=== PATIENT | male | born 1980 | race Caucasian/White ===

== ENCOUNTER 2021-11-09 09:30 | Inpatient (IN) ==
[2021-11-09 09:57] LABS: Hematocrit 36.9 % (37.5-50.1)
[2021-11-09] MEDS ORDERED: Iopamidol - 370 500 ML MLS IVP ONE (09:58)
[2021-11-09 09:59] LABS: Basophils # 0.1 K/mcL (0.0-0.2); Basophils % 0.5 %; Hemoglobin 12.1 g/dL (12.9-16.9); Immature Granulocytes % 0.8 % (0-4); Immature Platelets 12.8 % (1.1-6.1); Lymphocytes # 8.6 K/mcL (0.6-4.6); Lymphocytes % 63.9 %; Mean Corpuscular HGB Conc 32.8 g/dL (31.6-35.5); Mean Corpuscular Hemoglobin 25.2 pg (28.0-33.3); Mean Corpuscular Volume 76.9 fL (83.0-100.0); Mean Platelet Volume 10.9 fL (9.4-12.4); Monocytes # 1.6 K/mcL (0.0-1.3); Monocytes % 11.5 %; Platelet Count 129 K/mcL (140-400); Red Cell Distribution Width 17.3 % (11.5-14.5); Segmented Neutrophils % 23.3 %; White Blood Count 13.5 K/mcL (4.3-11.1)
[2021-11-09 10:02] LABS: Neutrophils # 3.2 K/mcL (1.6-8.9)
[2021-11-09 10:05] LABS: INR 1.1; Prothrombin Time 12.3 Seconds (9.4-12.1)
[2021-11-09] MEDS ORDERED: 0.9 % Sodium Chloride 1,000 ML IVC ONE ×2 (10:06→12:06)
[2021-11-09] MEDS ORDERED: Ondansetron 4 MG/2 ML VIAL IVP ONE (10:06)
[2021-11-09 10:07] LABS: Activated Partial Thrombo Time 39.8 Seconds (26.0-36.0)
[2021-11-09 10:37] LABS: Reactive Lymphocytes Present (Not Present)
[2021-11-09 10:38] LABS: Platelet Estimate Slight Decrease (Normal)
[2021-11-09 10:50] LABS: Alanine Aminotransferase 156 Units/L (7-52); Albumin 2.9 g/dL (3.5-5.7); Albumin/Globulin Ratio 0.7 (1.1-2.2); Alkaline Phosphatase 1056 Units/L (34-104); Aspartate Amino Transferase 268 Units/L (13-39); BUN/Creatinine Ratio 12 (6-26); Bilirubin,Total 7.8 mg/dL (0.3-1.0); Blood Urea Nitrogen 11 mg/dL (6-20); Calcium 8.2 mg/dL (8.6-10.3); Carbon Dioxide 28 mEq/L (23-29); Chloride 89 mEq/L (98-107); Globulin 3.9 g/dL (2.4-3.5); Glucose 145 mg/dL (70-105); Lipase 85 Units/L (11-82); Magnesium 2.1 mg/dL (1.6-2.6); Osmolality,Calculated 264 (280-300); Phosphorous 2.7 mg/dL (2.7-4.5); Sodium 126 mEq/L (136-145); Total Protein 6.8 g/dL (6.4-8.9); Troponin I 0.09 ng/mL (< 0.04)
[2021-11-09] MEDS ORDERED: Piperacillin/Tazobactam 3.375 GM in 0.9 % Sodium Chloride Mini Bag 100 ML IVPB ONE (12:06)
[2021-11-09 12:52] LABS: Bilirubin,Urine Moderate (Negative); Blood,Urine Negative (Negative); Clarity,Urine Clear (Clear); Color,Urine Dark-Yellow (Yellow); Glucose,Urine (UA) Normal (Normal); Ketones,Urine Negative (Negative); Leukocyte Esterase,Urine Negative (Negative); Nitrite,Urine Negative (Negative); Protein,Urine Trace mg/dL (Neg-Trace); Specific Gravity,Urine > 1.030 (1.010-1.025)
[2021-11-09 12:58] LABS: Bilirubin,Direct 4.8 mg/dL (0.0-0.2)
[2021-11-09] MEDS ORDERED: Naloxone 0.4 MG/ML INJ IVP PRN (14:25)
[2021-11-09 16:35] LABS: Troponin I 0.08 ng/mL (< 0.04)
[2021-11-09] MEDS ORDERED: Acetylcysteine IV 15,000 MG in D5% in Water 250 ML IVC ONE (16:58)
[2021-11-09 17:02] LABS: Hepatitis A Antibody IgM Nonreactive (Nonreactive)
[2021-11-09 17:04] LABS: Hepatitis B Core IgM Nonreactive (Nonreactive)
[2021-11-09 17:06] LABS: Hepatitis C Virus Antibody Nonreactive (Nonreactive)
[2021-11-09 17:28] LABS: Acetaminophen < 10 mcg/mL (10-20)
[2021-11-09] MEDS ORDERED: *HR* Dextrose 50 % in Water (Syg) 50 ML SYRINGE IVP PRN (17:53)
[2021-11-09] MEDS ORDERED: D5% in Water 1,000 ML IVC PRN (17:53)
[2021-11-09] MEDS ORDERED: Dextrose Gel 15 GM/37.5 ML TUBE PO PRN ×2 (17:53)
[2021-11-09 18:31] LABS: Hepatitis B Surface Antigen Reactive (Nonreactive)
[2021-11-09] MEDS ORDERED: Melatonin 3 MG TABLET PO PRN (20:30)
[2021-11-10 03:50] LABS: Immature Platelets 13.3 % (1.1-6.1); Nucleated Red Blood Cells 0.2 /100 WBC (0)
[2021-11-10 04:05] LABS: Alanine Aminotransferase 122 Units/L (7-52); Albumin 2.4 g/dL (3.5-5.7); Albumin/Globulin Ratio 0.7 (1.1-2.2); Alkaline Phosphatase 943 Units/L (34-104); Aspartate Amino Transferase 225 Units/L (13-39); BUN/Creatinine Ratio 11 (6-26); Bilirubin,Indirect 2.4 mg/dL (0.0-1.0); Bilirubin,Total 6.4 mg/dL (0.3-1.0); Blood Urea Nitrogen 9 mg/dL (6-20); Calcium 7.5 mg/dL (8.6-10.3); Carbon Dioxide 29 mEq/L (23-29); Chloride 92 mEq/L (98-107); Globulin 3.4 g/dL (2.4-3.5); Glucose 99 mg/dL (70-105); Osmolality,Calculated 265 (280-300); Potassium 3.3 mEq/L (3.5-5.1); Sodium 128 mEq/L (136-145); Total Protein 5.8 g/dL (6.4-8.9)
[2021-11-10 04:06] LABS: Chol/HDL Ratio 55.8 (0-4.9); Gamma Glutamyl Transpeptidase 1154 Units/L (7-64); Lactate Dehydrogenase 827 Units/L (140-271)
[2021-11-10 04:07] LABS: Phosphorous 2.4 mg/dL (2.7-4.5)
[2021-11-10 04:15] LABS: Basophils # 0.1 K/mcL (0.0-0.2); Basophils % 0.5 %; Hematocrit 29.7 % (37.5-50.1); Immature Granulocytes % 0.7 % (0-4); Lymphocytes # 8.9 K/mcL (0.6-4.6); Lymphocytes % 70.1 %; Mean Corpuscular HGB Conc 33.7 g/dL (31.6-35.5); Mean Corpuscular Hemoglobin 26.2 pg (28.0-33.3); Mean Platelet Volume 11.9 fL (9.4-12.4); Monocytes % 15.9 %; Neutrophils # 1.6 K/mcL (1.6-8.9); Platelet Count 130 K/mcL (140-400); Red Blood Count 3.81 M/mcL (4.19-5.50); Red Cell Distribution Width 16.8 % (11.5-14.5); Segmented Neutrophils % 12.8 %; White Blood Count 12.7 K/mcL (4.3-11.1)
[2021-11-10 05:30] LABS: Hepatitis B Core IgM Nonreactive (Nonreactive)
[2021-11-10 05:33] LABS: Hepatitis A Antibody IgM Nonreactive (Nonreactive)
[2021-11-10 05:35] LABS: Hepatitis C Virus Antibody Nonreactive (Nonreactive)
[2021-11-10 06:26] LABS: Anisocytosis 1+ (Not Present); Large Platelets Present (Not Present); Platelet Estimate Slight Decrease (Normal)
[2021-11-10 06:40] LABS: Hepatitis B Surface Antigen Reactive (Nonreactive)
[2021-11-10] MEDS: Insulin LISPRO 300 UNITS/3 ML VIAL SUBQ SCH ×3 (10:25→16:31)
[2021-11-10 10:44] LABS: Hemoglobin 10.1 g/dL (12.9-16.9)
[2021-11-10 10:45] LABS: Hematocrit 30.2 % (37.5-50.1)
[2021-11-10 10:52] LABS: INR 1.1; Prothrombin Time 12.5 Seconds (9.4-12.1)
[2021-11-10] MEDS: Cetirizine HCl 5 MG/5 ML UDC PO SCH (12:02)
[2021-11-10] MEDS: Loratadine 10 MG TABLET PO SCH (13:17)
[2021-11-10 14:10] LABS: Amphetamine Screen,Urine Negative ng/mL (Cutoff=1000); Barbiturate Screen,Urine Negative ng/mL (Cutoff=200); Benzodiazepines Screen,Urine Negative ng/mL (Cutoff=200); Cannabinoid Screen,Urine Negative ng/mL (Cutoff = 50); Cocaine Screen,Urine Negative ng/mL (Cutoff= 300); Opiate Screen,Urine Negative ng/mL (Cutoff=300); Phencyclidine Screen,Urine Negative ng/mL (Cutoff=25)
[2021-11-11] MEDS ORDERED: Vicks Vaporub Oint 50 GM PACKAGE TP PRN (00:16)
[2021-11-11 06:09] LABS: Basophils # 0.2 K/mcL (0.0-0.2); Basophils % 1.5 %; Eosinophils % 0.1 %; Hematocrit 28.8 % (37.5-50.1); Hemoglobin 9.9 g/dL (12.9-16.9); Immature Granulocytes % 0.7 % (0-4); Lymphocytes % 80.7 %; Mean Corpuscular HGB Conc 34.4 g/dL (31.6-35.5); Mean Corpuscular Volume 78.7 fL (83.0-100.0); Mean Platelet Volume 11.1 fL (9.4-12.4); Monocytes # 0.7 K/mcL (0.0-1.3); Monocytes % 6.4 %; Neutrophils # 1.2 K/mcL (1.6-8.9); Platelet Count 164 K/mcL (140-400); Red Blood Count 3.66 M/mcL (4.19-5.50); Red Cell Distribution Width 17.4 % (11.5-14.5); Segmented Neutrophils % 10.6 %; White Blood Count 11.6 K/mcL (4.3-11.1)
[2021-11-11 06:22] LABS: Lymphocytes # 9.4 K/mcL (0.6-4.6)
[2021-11-11 06:24] LABS: INR 1.1
[2021-11-11 06:28] LABS: Alanine Aminotransferase 148 Units/L (7-52); Albumin 2.5 g/dL (3.5-5.7); Albumin/Globulin Ratio 0.7 (1.1-2.2); Alkaline Phosphatase 1112 Units/L (34-104); Aspartate Amino Transferase 347 Units/L (13-39); BUN/Creatinine Ratio 9 (6-26); Bilirubin,Direct 4.3 mg/dL (0.0-0.2); Bilirubin,Indirect 2.6 mg/dL (0.0-1.0); Bilirubin,Total 6.9 mg/dL (0.3-1.0); Blood Urea Nitrogen 7 mg/dL (6-20); Calcium 7.8 mg/dL (8.6-10.3); Carbon Dioxide 30 mEq/L (23-29); Chloride 94 mEq/L (98-107); Globulin 3.6 g/dL (2.4-3.5); Glucose 91 mg/dL (70-105); Magnesium 2.1 mg/dL (1.6-2.6); Osmolality,Calculated 268 (280-300); Phosphorous 2.9 mg/dL (2.7-4.5); Potassium 3.5 mEq/L (3.5-5.1); Sodium 130 mEq/L (136-145); Total Protein 6.1 g/dL (6.4-8.9)
[2021-11-11 06:51] LABS: Hypochromasia Present (Not Present); Platelet Estimate Normal (Normal); Reactive Lymphocytes Present (Not Present)
[2021-11-11] MEDS: Insulin LISPRO 300 UNITS/3 ML VIAL SUBQ SCH ×3 (08:06→16:54)
[2021-11-11] MEDS: Loratadine 10 MG TABLET PO SCH (09:57)
[2021-11-11] MEDS: Cetirizine HCl 5 MG/5 ML UDC PO SCH (10:15)
[2021-11-11] MEDS: 0.9 % Sodium Chloride 1,000 ML IVC SCH (13:23)
[2021-11-11 21:55] LABS: HBV Quant by PCR NOT DETECTED
[2021-11-12] MEDS: 0.9 % Sodium Chloride 1,000 ML IVC SCH (03:46)
[2021-11-12 06:41] LABS: Hematocrit 29.5 % (37.5-50.1); Hemoglobin 9.6 g/dL (12.9-16.9); Mean Corpuscular HGB Conc 32.5 g/dL (31.6-35.5); Mean Corpuscular Hemoglobin 25.9 pg (28.0-33.3); Mean Corpuscular Volume 79.5 fL (83.0-100.0); Platelet Count 195 K/mcL (140-400); Red Blood Count 3.71 M/mcL (4.19-5.50); Red Cell Distribution Width 18.3 % (11.5-14.5); White Blood Count 11.4 K/mcL (4.3-11.1)
[2021-11-12 06:59] LABS: Alanine Aminotransferase 180 Units/L (7-52); Albumin 2.4 g/dL (3.5-5.7); Albumin/Globulin Ratio 0.6 (1.1-2.2); Alkaline Phosphatase 1296 Units/L (34-104); Aspartate Amino Transferase 396 Units/L (13-39); BUN/Creatinine Ratio 10 (6-26); Bilirubin,Direct 3.8 mg/dL (0.0-0.2); Bilirubin,Indirect 2.8 mg/dL (0.0-1.0); Bilirubin,Total 6.6 mg/dL (0.3-1.0); Blood Urea Nitrogen 7 mg/dL (6-20); Calcium 7.9 mg/dL (8.6-10.3); Carbon Dioxide 27 mEq/L (23-29); Chloride 96 mEq/L (98-107); Globulin 3.8 g/dL (2.4-3.5); Glucose 96 mg/dL (70-105); Osmolality,Calculated 264 (280-300); Potassium 3.9 mEq/L (3.5-5.1); Sodium 128 mEq/L (136-145); Total Protein 6.2 g/dL (6.4-8.9)
[2021-11-12 09:14] LABS: HBV Quant Interpretation NOT DETECTED (Not Detected); HBV Quant Log by PCR NOT DETECTED log IU/mL
[2021-11-12 09:22] LABS: HSV 2 Glycoprotein G IgG 0.18 IV (<=0.89)
[2021-11-12] MEDS: Insulin LISPRO 300 UNITS/3 ML VIAL SUBQ SCH (09:55)
[2021-11-12] MEDS: Loratadine 10 MG TABLET PO SCH (09:56)
[2021-11-12 11:40] VITALS: BP 123/84; PULSE 71; TEMP 98.6; O2SAT 100
[2021-11-13 05:08] LABS: Hepatitis B Core Ab Total NEGATIVE (Negative); Hepatitis Be Antibody NEGATIVE (Negative); Hepatitis Be Antigen POSITIVE (Negative)
== END 2021-11-12 12:45 | disposition home or self-care (01) | DRG 442 ==
LOC: 3ANU 09:30 → EMEROOARM 09:30 → 3ANU 14:59
PROVIDERS: ADMIT Internal Medicine; ATTEND Internal Medicine